=== PATIENT | female | born 1955 | race Caucasian/White ===

== ENCOUNTER 2016-07-29 05:59 | Emergency (ER) | payer MEDICARE, BC, MEDICAID ==
[2016-07-29 06:53] LABS: HEMATOCRIT 56 % (35-47); MEAN CORPUSCULAR HGB CONC 31.8 gm/dl (32.0-36.0); MEAN CORPUSCULAR VOLUME 97 fL (81-99)
[2016-07-29 06:55] LABS: ALBUMIN 3.3 gm/dl (3.4-5.0); CALCIUM 9.4 mg/dl (8.5-10.1)
[2016-07-29 07:20] LABS: BASOPHILS % (MANUAL) 0 % (0-3); EOSINOPHILS % (MANUAL) 0 % (0-9); LYMPHOCYTES % (MANUAL) 18 % (10-50); NORMAL RBCS PRESENT
[2016-07-29] MEDS ORDERED: SODIUM CHLORIDE 0.9% 1000ML 1,000 ML IV ONE (07:37)
[2016-07-29] MEDS ORDERED: LEVOFLOXACIN 500 MG (PREMIX) 500 MG/100 ML SOL IV ONE ×2 (08:54→09:00)
[2016-07-29] MEDS ORDERED: GENTAMICIN SULFATE 40 MG/ML SOL ONE ×2 (08:55→08:56)
[2016-07-29] MEDS ORDERED: HYDROCORTISONE SODIUM SUCCIN 100 MG PDS IV ONE (09:07)
[2016-07-29] MEDS ORDERED: HYDROCORTISONE SODIUM SUCCIN 100 MG PDS ONE (09:09)
[2016-07-29 09:30] VITALS: RESP 16; TEMP 98.9
[2016-07-29] MEDS ORDERED: SODIUM CHLORIDE 0.9% FLUSH 10 ML SOL IV PRN (09:34)
[2016-07-29 09:57] VITALS: BP 66/44; PULSE 112; O2SAT 94
[2016-07-29] MEDS ORDERED: GENTAMICIN SULFATE IV ONE (10:00)
[2016-07-29] MEDS ORDERED: SODIUM CHLORIDE 0.9% IV ONE (10:00)
== END 2016-07-29 10:00 | disposition short-term general hospital (02) | DRG 193 ==
LOC: ED 05:59
DX: J18.9 Pneumonia, unspecified organism (principal); N18.6 End stage renal disease; I95.9 Hypotension, unspecified; E27.40 Unspecified adrenocortical insufficiency; Z99.2 Dependence on renal dialysis; R09.02 Hypoxemia
CPT/HCPCS: 36415; 71010; 80053; 85007; 85027; 87040; 96365; 96366; 96374; 99070; 99285; 99291; J1580; J1720; J1956

== ENCOUNTER 2016-09-10 10:01 | Emergency (ER) | payer MEDICARE, BC, MEDICAID ==
[2016-09-10 10:08] VITALS: RESP 18
[2016-09-10 11:24] LABS: BASOPHILS % (AUTO) 1 % (0-3); EOSINOPHILS % (AUTO) 1 % (0-9); HEMATOCRIT 46 % (35-47); MEAN CORPUSCULAR VOLUME 95 fL (81-99); MONOCYTES % (AUTO) 5.8 % (0-12); NEUTROPHILS % (AUTO) 80.6 % (37-80)
[2016-09-10 11:26] LABS: ALBUMIN 2.8 gm/dl (3.4-5.0); CALCIUM 9.1 mg/dl (8.5-10.1); POTASSIUM 5.2 mMol/L (3.5-5.1)
[2016-09-10] MEDS ORDERED: AZITHROMYCIN 250 MG TAB PO ONE (11:34)
[2016-09-10] MEDS ORDERED: AZITHROMYCIN 250 MG TAB ONE (11:52)
[2016-09-10 15:30] VITALS: BP 122/58; PULSE 94; TEMP 98.7; O2SAT 92
== END 2016-09-10 12:28 | DRG 195 ==
LOC: ED 10:01
DX: J18.1 Lobar pneumonia, unspecified organism (principal)
CPT/HCPCS: 36415; 71010; 80053; 85025; 99283

== ENCOUNTER 2016-09-11 08:10 | Emergency (ER) | payer MEDICARE, BC, MEDICAID ==
[2016-09-11 08:38] VITALS: RESP 16
[2016-09-11] MEDS ORDERED: VANCOMYCIN HCL 500 MG PDS 1,000 MG in SODIUM CHLORIDE 0.9% 250 ML 250 ML IV ONE (08:45)
[2016-09-11] MEDS ORDERED: PIPERACILLIN/TAZOBACT 3.375 GM 3.375 GM in SODIUM CHLORIDE 0.9% 100 ML 100 ML IV SCH (08:45)
[2016-09-11 09:08] LABS: BASOPHILS % (AUTO) 1 % (0-3); EOSINOPHILS % (AUTO) 2 % (0-9); HEMATOCRIT 44 % (35-47); MEAN CORPUSCULAR HGB CONC 33.2 gm/dl (32.0-36.0); MEAN CORPUSCULAR VOLUME 95 fL (81-99); MONOCYTES % (AUTO) 7.7 % (0-12); NEUTROPHILS % (AUTO) 76.5 % (37-80)
[2016-09-11] MEDS ORDERED: SODIUM CHLORIDE 0.9% 250 ML 250 ML IV ONE (09:16)
[2016-09-11] MEDS ORDERED: VANCOMYCIN HYDROCHLORIDE 500 MG PDS IV ONE (09:16)
[2016-09-11 09:26] LABS: ALBUMIN 2.7 gm/dl (3.4-5.0); CALCIUM 9.5 mg/dl (8.5-10.1); POTASSIUM 5.8 mMol/L (3.5-5.1)
[2016-09-11 09:42] LABS: APPEARANCE,URINE Cloudy; BILIRUBIN,URINE 2+ (NEGATIVE); COLOR,URINE Brown; GLUCOSE, URINE (UA) TRACE (NEGATIVE); KETONES,URINE 1+ (NEGATIVE); LEUKOCYTE ESTERASE ,URINE 3+ (NEGATIVE); NITRATE,URINE POSITIVE (NEGATIVE); OCCULT BLOOD,URINE 3+ (NEG-TRACE); PH,URINE >=9.0
[2016-09-11 09:43] VITALS: TEMP 101.1
[2016-09-11 09:51] LABS: ICTOTEST,URINE NEGATIVE (NEGATIVE)
[2016-09-11 09:52] LABS: WBC,URINE TNTC (0-5AV/HPF)
[2016-09-11] MEDS ORDERED: PIPERACILLIN/TAZOBACT 3.375 GM PDS IV ONE (10:06)
[2016-09-11 10:34] VITALS: BP 107/76; PULSE 103; O2SAT 94
== END 2016-09-11 10:22 | disposition short-term general hospital (02) | DRG 195 ==
LOC: ED 08:10
DX: J18.9 Pneumonia, unspecified organism (principal); R50.9 Fever, unspecified
CPT/HCPCS: 36415; 71010; 80053; 81001; 85025; 87040; 87077; 87088; 87186; 96365; 99284; J2543; J3370

== ENCOUNTER 2016-12-02 07:40 | Emergency (ER) | payer MEDICARE, BC, MEDICAID ==
[2016-12-02] MEDS ORDERED: ALBUTEROL/IPRATROPIUM 1 VIAL SOL ONE ×2 (07:45→08:21)
[2016-12-02] MEDS ORDERED: ALBUTEROL NEB SOL 2.5MG/3ML 1 VIAL SOL NEB ONE (07:48)
[2016-12-02] MEDS ORDERED: SODIUM CHLORIDE 0.9% 1000 ML SOL IV SCH (08:00)
[2016-12-02] MEDS ORDERED: ALBUTEROL/IPRATROPIUM 1 VIAL SOL INH ONE (08:11)
[2016-12-02 08:35] LABS: HEMATOCRIT 50 % (35-47); MEAN CORPUSCULAR HGB CONC 31.1 gm/dl (32.0-36.0)
[2016-12-02 08:36] LABS: CALCIUM 8.3 mg/dl (8.5-10.1); POTASSIUM 4.9 mMol/L (3.5-5.1)
[2016-12-02 08:37] LABS: MEAN CORPUSCULAR VOLUME 99 fL (81-99)
[2016-12-02] MEDS ORDERED: FUROSEMIDE 100 MG SOL IV ONE (08:38)
[2016-12-02] MEDS ORDERED: FUROSEMIDE 100 MG SOL ONE (08:41)
[2016-12-02] MEDS ORDERED: AZITHROMYCIN 500 MG PDS 500 MG in SODIUM CHLORIDE 0.9% 500 ML 500 ML IV ONE (08:55)
[2016-12-02] MEDS ORDERED: CEFTRIAXONE 1 GM PDS 1 GM in SODIUM CHLORIDE 0.9% 100 ML 100 ML IV ONE (08:55)
[2016-12-02] MEDS ORDERED: CEFTRIAXONE 1 GM (PREMIX) 1 GM/50 ML SOL IV ONE (08:56)
[2016-12-02] MEDS ORDERED: ACETAMINOPHEN 500 MG 500 MG TAB PO ONE ×2 (09:01)
[2016-12-02 09:03] LABS: BASOPHILS % (MANUAL) 0 % (0-3); EOSINOPHILS % (MANUAL) 2 % (0-9); LYMPHOCYTES % (MANUAL) 26 % (10-50); NORMAL RBCS NORMAL RBCS
[2016-12-02] MEDS ORDERED: ACETAMINOPHEN 500 MG 500 MG TAB ONE (09:03)
[2016-12-02] MEDS ORDERED: AZITHROMYCIN 500 MG PDS IV ONE (09:03)
[2016-12-02 09:09] VITALS: TEMP 100.8
[2016-12-02 09:09] LABS: APPEARANCE,URINE Cloudy; BILIRUBIN,URINE NEGATIVE (NEGATIVE); COLOR,URINE Brown; GLUCOSE, URINE (UA) NEGATIVE (NEGATIVE); KETONES,URINE NEGATIVE (NEGATIVE); LEUKOCYTE ESTERASE ,URINE 3+ (NEGATIVE); NITRATE,URINE NEGATIVE (NEGATIVE); OCCULT BLOOD,URINE 3+ (NEG-TRACE); PH,URINE 8.5; UROBILINOGEN,URINE 0.2 (0.2-1.0 EU)
[2016-12-02] MEDS ORDERED: NOREPINEPHRINE BITARTRATE 4 MG/4 ML SOL IV ONE (09:23)
[2016-12-02] MEDS ORDERED: NOREPINEPHRINE 4 MG/4 ML 4 MG in DEXTROSE 500 ML 500 ML IV SCH (09:30)
[2016-12-02 09:36] LABS: WBC,URINE TNTC (0-5AV/HPF)
[2016-12-02 10:20] VITALS: BP 56/41; PULSE 102; RESP 17; O2SAT 95
== END 2016-12-02 09:45 | disposition short-term general hospital (02) | DRG 194 ==
LOC: ED 07:40
DX: J18.1 Lobar pneumonia, unspecified organism (principal); N18.4 Chronic kidney disease, stage 4 (severe); I95.9 Hypotension, unspecified; Z99.2 Dependence on renal dialysis; R06.02 Shortness of breath; Z79.01 Long term (current) use of anticoagulants
CPT/HCPCS: 36415; 71010; 80048; 81001; 83880; 85007; 85027; 85610; 87040; 96365; 96374; 99291; 99292; J0456; J0696; J1940; J7620

== ENCOUNTER 2017-08-11 07:15 | Emergency (ER) | payer MEDICARE, BC, MEDICAID ==
[2017-08-11] MEDS ORDERED: ALBUTEROL/IPRATROPIUM 1 VIAL SOL INH ONE (07:51)
[2017-08-11] MEDS ORDERED: ACETAMINOPHEN 500 MG 500 MG TAB PO ONE (07:51)
[2017-08-11] MEDS ORDERED: SODIUM CHLORIDE 0.9% FLUSH 10 ML SOL IV PRN (07:51)
[2017-08-11] MEDS ORDERED: CEFTRIAXONE 1 GM PDS 1 GM in SODIUM CHLORIDE 0.9% 50 ML 50 ML IV SCH (08:00)
[2017-08-11] MEDS ORDERED: CEFTRIAXONE 1 GM PDS ONE (08:26)
[2017-08-11] MEDS ORDERED: ALBUTEROL/IPRATROPIUM 1 VIAL SOL ONE (08:26)
[2017-08-11] MEDS ORDERED: ACETAMINOPHEN 500 MG 500 MG TAB ONE (08:26)
[2017-08-11 08:55] LABS: ALBUMIN 3.3 gm/dl (3.4-5.0); ALKALINE PHOSPHATASE 122 IU/L (46-116); ALT 26 IU/L (14-63); AST 16 IU/L (15-37); BILIRUBIN,TOTAL 0.6 mg/dl (0.2-1.0); BLOOD UREA NITROGEN 92 mg/dl (7-18); CARBON DIOXIDE 23.2 mEq/L (21-32); CHLORIDE 99 mMol/L (98-107); CREATININE 7.34 mg/dl (0.60-1.00); GLOM FILT RATE 6 mL/min (>60); GLUCOSE 108 mg/dl (74-106); POTASSIUM 5.5 mMol/L (3.5-5.1); SODIUM 137 mMol/L (136-145); TOTAL PROTEIN 7.6 gm/dl (6.4-8.2); TROP I < 0.017 ng/ml (0.000-0.056)
[2017-08-11 09:07] LABS: LACTIC ACID 1.4 mMol/L (0.0-2.0)
[2017-08-11 09:18] LABS: BASOPHILS % (AUTO) 1 % (0-3); EOSINOPHILS % (AUTO) 1 % (0-9); HEMATOCRIT 57 % (35-47); HEMOGLOBIN 17.1 gm/dl (12.0-15.5); LYMPHOCYTES % (AUTO) 11.2 % (10-50); MEAN CORPUSCULAR HEMOGLOBIN 30.1 pg (27.0-32.0); MEAN CORPUSCULAR HGB CONC 29.9 gm/dl (32.0-36.0); MONOCYTES % (AUTO) 5.6 % (0-12); NEUTROPHILS % (AUTO) 81.4 % (37-80)
[2017-08-11 09:27] LABS: MEAN CORPUSCULAR VOLUME 101 fL (81-99)
[2017-08-11 09:34] LABS: INFLUENZA A NEGATIVE (NEGATIVE); INFLUENZA B NEGATIVE (NEGATIVE)
[2017-08-11] MEDS ORDERED: PIPERACILLIN/TAZOBACT 3.375 GM 3.375 GM in SODIUM CHLORIDE 0.9% 100 ML 100 ML IV ONE (09:50)
[2017-08-11] MEDS ORDERED: SODIUM CHLORIDE 0.9% 500 ML SOL IV ONE (10:15)
[2017-08-11] MEDS ORDERED: PIPERACILLIN/TAZOBACT 3.375 GM PDS IV ONE (10:28)
[2017-08-11 10:53] VITALS: RESP 12; TEMP 98.3; O2SAT 93
[2017-08-11 11:28] VITALS: BP 83/58; PULSE 115
== END 2017-08-11 11:18 | disposition short-term general hospital (02) | DRG 391 ==
LOC: ED 07:15
DX: R11.2 Nausea with vomiting, unspecified (principal); N18.4 Chronic kidney disease, stage 4 (severe); J69.0 Pneumonitis due to inhalation of food and vomit; I95.9 Hypotension, unspecified; R06.02 Shortness of breath; R61 Generalized hyperhidrosis; R50.9 Fever, unspecified
CPT/HCPCS: 36415; 71045; 80053; 83880; 84484; 85025; 87040; 87804; 96365; 96366; 99291; 99292; J0696; J2543; A6402

== ENCOUNTER 2017-08-26 07:57 | Emergency (ER) | payer MEDICARE, BC, MEDICAID ==
[2017-08-26] MEDS ORDERED: ALBUTEROL NEB SOL 2.5MG/3ML 1 VIAL SOL ONE (08:07)
[2017-08-26] MEDS ORDERED: ALBUTEROL NEB SOL 2.5MG/3ML 1 VIAL SOL NEB ONE (08:10)
[2017-08-26 08:12] VITALS: TEMP 97.9
[2017-08-26] MEDS ORDERED: SODIUM CHLORIDE 0.9% 250 ML 250 ML IV ONE (08:27)
[2017-08-26 08:59] LABS: LACTIC ACID 1.3 mMol/L (0.0-2.0)
[2017-08-26 09:08] LABS: INR 2.49 (0.86-1.12)
[2017-08-26 09:13] LABS: BASOPHILS % (AUTO) 2 % (0-3); EOSINOPHILS % (AUTO) 1 % (0-9); HEMATOCRIT 48 % (35-47); HEMOGLOBIN 15.6 gm/dl (12.0-15.5); MEAN CORPUSCULAR HEMOGLOBIN 32.1 pg (27.0-32.0); MEAN CORPUSCULAR HGB CONC 32.4 gm/dl (32.0-36.0); MONOCYTES % (AUTO) 7.8 % (0-12); NEUTROPHILS % (AUTO) 74.8 % (37-80)
[2017-08-26 09:14] LABS: MEAN CORPUSCULAR VOLUME 99 fL (81-99)
[2017-08-26 09:16] LABS: ALBUMIN 2.8 gm/dl (3.4-5.0); ALKALINE PHOSPHATASE 108 IU/L (46-116); ALT 26 IU/L (14-63); AST 9 IU/L (15-37); BILIRUBIN,TOTAL 0.8 mg/dl (0.2-1.0); BLOOD UREA NITROGEN 44 mg/dl (7-18); CALCIUM 8.9 mg/dl (8.5-10.1); CARBON DIOXIDE 23.7 mEq/L (21-32); CHLORIDE 97 mMol/L (98-107); CREATININE 4.94 mg/dl (0.60-1.00); GLOM FILT RATE 9 mL/min (>60); GLUCOSE 85 mg/dl (74-106); POTASSIUM 4.3 mMol/L (3.5-5.1); SODIUM 136 mMol/L (136-145); TOTAL PROTEIN 7.3 gm/dl (6.4-8.2); TROP I < 0.017 ng/ml (0.000-0.056)
[2017-08-26 09:57] LABS: APPEARANCE,URINE Turbid; BILIRUBIN,URINE 1+ (NEGATIVE); COLOR,URINE Brown; GLUCOSE, URINE (UA) NEGATIVE (NEGATIVE); KETONES,URINE NEGATIVE (NEGATIVE); LEUKOCYTE ESTERASE ,URINE 3+ (NEGATIVE); NITRATE,URINE NEGATIVE (NEGATIVE); OCCULT BLOOD,URINE 3+ (NEG-TRACE); PH,URINE 7.5; UROBILINOGEN,URINE 0.2 (0.2-1.0 EU)
[2017-08-26 10:03] LABS: RBC,URINE TNTC (0-3AV/HPF)
[2017-08-26] MEDS ORDERED: LEVOFLOXACIN 25 MG/ML 750 MG in SODIUM CHLORIDE 0.9% 250 ML 150 ML IV ONE (10:03)
[2017-08-26 10:04] LABS: BACTERIA 3+ (< 1+); CRYSTALS UNABLE TO QUANTITATE (0-3 AVE/HPF); EPITHELIAL CELLS UNABLE TO QUANTITATE (SQUAMOUS); WBC,URINE TNTC (0-5AV/HPF)
[2017-08-26] MEDS ORDERED: PIPERACILLIN/TAZOBACT 3.375 GM 2.25 GM in SODIUM CHLORIDE 0.9% 100 ML 100 ML IV ONE (10:05)
[2017-08-26 10:07] LABS: ICTOTEST,URINE NEGATIVE (NEGATIVE)
[2017-08-26] MEDS ORDERED: LEVOFLOXACIN 25 MG/ML SOL IV ONE (10:09)
[2017-08-26 12:24] VITALS: BP 108/71; PULSE 108; RESP 16; O2SAT 97
== END 2017-08-26 12:12 | DRG 947 ==
LOC: ED 07:57
DX: R53.1 Weakness (principal); J18.1 Lobar pneumonia, unspecified organism; N30.01 Acute cystitis with hematuria; Z94.0 Kidney transplant status; J98.11 Atelectasis; Z79.01 Long term (current) use of anticoagulants; R91.1 Solitary pulmonary nodule; R00.0 Tachycardia, unspecified; I48.91 Unspecified atrial fibrillation
CPT/HCPCS: 36415; 71045; 71250; 80053; 81001; 84484; 85025; 85610; 87040; 87077; 87088; 87186; 93005; 96365; 96366; 99284; 99285; J1956; J7613

== ENCOUNTER 2017-09-22 17:28 | Emergency (ER) | payer MEDICARE, BC, MEDICAID ==
[2017-09-22 18:06] LABS: CALCIUM 8.4 mg/dl (8.5-10.1); CARBON DIOXIDE 28.2 mEq/L (21-32); CREATININE 4.44 mg/dl (0.60-1.00); POTASSIUM 4.3 mMol/L (3.5-5.1)
[2017-09-22 18:10] LABS: HEMATOCRIT 49 % (35-47); HEMOGLOBIN 15.2 gm/dl (12.0-15.5); MEAN CORPUSCULAR HEMOGLOBIN 30.4 pg (27.0-32.0); MEAN CORPUSCULAR HGB CONC 31.1 gm/dl (32.0-36.0); MEAN CORPUSCULAR VOLUME 98 fL (81-99)
[2017-09-22 18:13] VITALS: RESP 20; TEMP 99.3
[2017-09-22 18:46] LABS: ANISOCYTOSIS SLIGHT AMT; BAND NEUTROPHILS % (MANUAL) 12 %; BASOPHILS % (MANUAL) 0 % (0-3); BURR CELLS OCCASIONAL; EOSINOPHILS % (MANUAL) 0 % (0-9); LYMPHOCYTES % (MANUAL) 7 % (10-50); MONOCYTES % (MANUAL) 8 % (0-12); NEUTROPHILS % (MANUAL) 73 % (37-80); PLATELET MORPHOLOGY COMMENT DECREASED; POIKILOCYTOSIS SLIGHT AMT
[2017-09-22 18:58] VITALS: BP 76/42; PULSE 110; O2SAT 99
[2017-09-22] MEDS ORDERED: LEVOFLOXACIN 25 MG/ML 500 MG in SODIUM CHLORIDE 0.9% 100 ML 100 ML IV ONE (19:08)
[2017-09-22] MEDS ORDERED: LEVOFLOXACIN 25 MG/ML SOL IV ONE (19:10)
== END 2017-09-22 19:30 | disposition short-term general hospital (02) | DRG 195 ==
LOC: ED 17:28
DX: J18.1 Lobar pneumonia, unspecified organism (principal); R05 Cough; Z79.01 Long term (current) use of anticoagulants; I48.91 Unspecified atrial fibrillation
CPT/HCPCS: 36415; 71045; 80048; 85007; 85027; 87040; 99284; 99285; J1956

== ENCOUNTER 2017-10-11 09:05 | Emergency (ER) | payer MEDICARE, BC, MEDICAID ==
[2017-10-11 09:06] VITALS: O2SAT 99
[2017-10-11] MEDS ORDERED: HEPARIN SODIUM 5000 U/ML SOL ONE (09:27)
[2017-10-11] MEDS ORDERED: SODIUM CHLORIDE 0.9% 1000ML 1,000 ML IV ONE ×2 (09:45→10:30)
[2017-10-11] MEDS ORDERED: ATROPINE 0.1 MG/ML SOL ONE (09:45)
[2017-10-11] MEDS ORDERED: LIDOCAINE HCL 2% (100 MG) CARP ONE (09:45)
[2017-10-11] MEDS ORDERED: SUCCINYLCHOLINE CHLORIDE 20 MG/ML SOL IV ONE (09:46)
[2017-10-11] MEDS ORDERED: ROCURONIUM BROMIDE 10 MG/ML SOL IV ONE (09:46)
[2017-10-11] MEDS ORDERED: ETOMIDATE 2 MG/ML SOL IV ONE ×2 (09:46→10:19)
[2017-10-11 09:53] LABS: HEMATOCRIT 54 % (35-47); HEMOGLOBIN 15.7 gm/dl (12.0-15.5); MEAN CORPUSCULAR HEMOGLOBIN 29.3 pg (27.0-32.0); MEAN CORPUSCULAR HGB CONC 28.9 gm/dl (32.0-36.0)
[2017-10-11 09:54] LABS: LACTIC ACID 3.4 mMol/L (0.0-2.0)
[2017-10-11 09:56] LABS: MEAN CORPUSCULAR VOLUME 101 fL (81-99)
[2017-10-11] MEDS ORDERED: NOREPINEPHRINE BITARTRATE 4 MG/4 ML SOL IV ONE (10:01)
[2017-10-11 10:02] LABS: ALBUMIN 2.8 gm/dl (3.4-5.0); CALCIUM 9.4 mg/dl (8.5-10.1); CARBON DIOXIDE 21.7 mEq/L (21-32); CREATININE 5.08 mg/dl (0.60-1.00); TOTAL PROTEIN 7.2 gm/dl (6.4-8.2)
[2017-10-11 10:04] LABS: APPEARANCE,URINE TURBID; COLOR,URINE BROWN
[2017-10-11 10:05] LABS: POTASSIUM 6.9 mMol/L (3.5-5.1)
[2017-10-11] MEDS ORDERED: NOREPINEPHRINE BITARTRATE 4 MG/4 ML SOL IV SCH (10:45)
[2017-10-11 10:46] LABS: BAND NEUTROPHILS % (MANUAL) 5 %; BASOPHILS % (MANUAL) 0 % (0-3); EOSINOPHILS % (MANUAL) 1 % (0-9); LYMPHOCYTES % (MANUAL) 15 % (10-50); MONOCYTES % (MANUAL) 6 % (0-12); NEUTROPHILS % (MANUAL) 73 % (37-80)
[2017-10-11 10:47] LABS: GLUCOSE, URINE (UA) NEGATIVE (NEGATIVE); KETONES,URINE NEGATIVE (NEGATIVE)
[2017-10-11 10:47] LABS: ANISOCYTOSIS SLIGHT AMT
[2017-10-11 10:48] LABS: BILIRUBIN,URINE NEGATIVE (NEGATIVE); NITRATE,URINE NEGATIVE (NEGATIVE); OCCULT BLOOD,URINE LARGE (NEG-TRACE); UROBILINOGEN,URINE 0.2 (0.2-1.0 EU)
[2017-10-11 10:49] LABS: LEUKOCYTE ESTERASE ,URINE 3+ (NEGATIVE)
[2017-10-11] MEDS ORDERED: SODIUM CHLORIDE 0.9% 500 ML 500 ML IV ONE (11:00)
[2017-10-11 11:01] LABS: BACTERIA UNABLE (< 1+); CRYSTALS UNABLE (0-3 AVE/HPF); EPITHELIAL CELLS UNABLE (SQUAMOUS); RBC,URINE UNABLE (0-3AV/HPF); WBC,URINE TNTC (0-5AV/HPF)
[2017-10-11 11:53] VITALS: RESP 16; TEMP 99.1
[2017-10-11] MEDS ORDERED: SODIUM CHLORIDE 0.9% FLUSH 10 ML SOL IV PRN (11:58)
[2017-10-11 12:10] VITALS: BP 166/143; PULSE 89
== END 2017-10-11 11:02 | disposition short-term general hospital (02) | DRG 205 ==
LOC: ED 09:05
DX: R09.02 Hypoxemia (principal); A41.9 Sepsis, unspecified organism; N18.4 Chronic kidney disease, stage 4 (severe); Z94.0 Kidney transplant status; Z99.2 Dependence on renal dialysis; R50.9 Fever, unspecified; I95.9 Hypotension, unspecified; R82.79 Other abnormal findings on microbiological examination of urine
CPT/HCPCS: 31500; 36415; 71045; 80053; 81001; 85007; 85027; 87040; 87077; 87088; 87186; 96365; 96374; 96375; 99291; 99292; J0330; J0461; J1644; J2001; A6446; A9270-GY; J3490